=== PATIENT | female | born 1985 | race Caucasian/White ===

== ENCOUNTER 2020-11-07 20:11 | Emergency (ER) | payer OTHER ==
[~2020-11-07 20:11] MED LIST: HCTZ25 MG PO; PRENATAL FORMU1 EACH PO; VITAMIN D3125 MC1 PO
[2020-11-07 21:03] LABS: BASOPHIL 0.2 % (0-2); BILIRUBIN NEGATIVE (NEGATIVE); BLOOD TRACE-INTACT Ery/uL (NEGATIVE); CLARITY CLEAR (CLEAR); COLOR YELLOW (YELLOW); GLUCOSE (U) NORMAL (NORMAL); HCT 37.3 % (37.0-47.0); HGB 13.2 g/dl (12.5-16.0); LEUKOCYTES NEGATIVE Leu/uL (NEGATIVE); LYMPHOCYTE 36.9 % (15-48); MCH 30.8 pg (25.0-31.0); MCHC 35.4 g/dL (32.0-36.0); MCV 87.1 fL (78.0-100.0); MPV 8.8 fL (6.0-9.5); NEUTROPHIL 56.5 % (41-80); NITRITE NEGATIVE (NEGATIVE); NRBC 0; PLT 341 K/uL (150-400); PROTEIN NEGATIVE (NEGATIVE); RBC 4.28 M/uL (4.20-5.40); UROBILINOGEN 0.2 mg/dL (0.2-1.0); WBC 12.2 K/uL (4.0-10.5); pH 5.5 (5.0-9.0)
[2020-11-07 21:12] LABS: BACTERIA 2+
[2020-11-07 21:13] LABS: SQUAMOUS EPITHELIAL CELLS 20-50
[2020-11-07 21:24] LABS: BILIRUBIN - TOTAL 0.3 mg/dL (0.2-1.0); BUN/CREAT RATIO (CALC) 13.8 RATIO; CREATININE 0.58 mg/dL (0.51-0.95); GLOBULIN (CALCULATION) 3.9 g/dL; POTASSIUM 3.2 mmol/L (3.5-5.1); TOTAL PROTEIN 6.9 g/dL (6.4-8.2)
== END 2020-11-07 23:54 | disposition home or self-care (01) ==
LOC: FER 20:11
PROVIDERS: Emergency Medicine
DX: O99.891 Other specified diseases and conditions complicating pregnancy (principal); R51.9 Headache, unspecified; O99.281 Endocrine, nutritional and metabolic diseases complicating pregnancy, first trimester; E87.6 Hypokalemia; E87.1 Hypo-osmolality and hyponatremia; O99.331 Smoking (tobacco) complicating pregnancy, first trimester; F17.200 Nicotine dependence, unspecified, uncomplicated; Z3A.01 Less than 8 weeks gestation of pregnancy
CPT/HCPCS: 36415; 80053; 81001; 84702; 85025; 99284

== ENCOUNTER 2021-05-31 15:31 | Inpatient (IN) | payer OTHER ==
[2021-05-31 16:08] LABS: HCT 33.2 % (37.0-47.0); HGB 11.5 g/dl (12.5-16.0); MCH 29.3 pg (25.0-31.0); MCHC 34.6 g/dL (32.0-36.0); MCV 84.7 fL (78.0-100.0); MPV 10.6 fL (6.0-9.5); RBC 3.92 M/uL (4.20-5.40); RDW 15.6 % (11.5-14.0); WBC 8.9 K/uL (4.0-10.5)
[2021-05-31 16:20] LABS: ALBUMIN 2.6 g/dL (3.4-5.0); BILIRUBIN - TOTAL 0.4 mg/dL (0.2-1.0); BUN/CREAT RATIO (CALC) 9.3 RATIO; CREATININE 0.54 mg/dL (0.51-0.95); GLOBULIN (CALCULATION) 4.4 g/dL; POTASSIUM 3.7 mmol/L (3.5-5.1); URIC ACID 4.3 mg/dL (2.6-6.2)
[2021-05-31 16:45] LABS: BILIRUBIN NEGATIVE (NEGATIVE); BLOOD TRACE-INTACT Ery/uL (NEGATIVE); CLARITY CLEAR (CLEAR); COLOR YELLOW (YELLOW); GLUCOSE (U) NORMAL (NORMAL); LEUKOCYTES NEGATIVE Leu/uL (NEGATIVE); NITRITE NEGATIVE (NEGATIVE); PROTEIN NEGATIVE (NEGATIVE); UROBILINOGEN 0.2 mg/dL (0.2-1.0)
[2021-05-31 16:54] LABS: BACTERIA TRACE
[2021-05-31 17:00] LABS: AMPHETAMINES NEGATIVE (NEGATIVE); BARBITURATES NEGATIVE (NEGATIVE); ECSTASY (MDMA) NEGATIVE (NEGATIVE); MARIJUANA (THC) NEGATIVE (NEGATIVE); METHADONE NEGATIVE (NEGATIVE); OPIATES NEGATIVE (NEGATIVE); OXYCODONE NEGATIVE (NEGATIVE)
[2021-05-31 17:26] LABS: URINE CREATININE 38.82 mg/dL (29.00-226.00); URINE TOTAL PROTEIN-RANDOM <6.0 mg/dL (<11.9)
[2021-06-02 06:36] LABS: HCT 27.4 % (37.0-47.0); HGB 9.4 g/dl (12.5-16.0); MCH 29.3 pg (25.0-31.0); MCHC 34.3 g/dL (32.0-36.0); MCV 85.4 fL (78.0-100.0); RBC 3.21 M/uL (4.20-5.40); RDW 15.5 % (11.5-14.0); WBC 11.9 K/uL (4.0-10.5)
[2021-06-02] MEDS ORDERED: FEOSOL325 MG PO (17:26)
[2021-06-02] MEDS ORDERED: PRENATAL FORMU1 EACH PO (17:26)
[2021-06-02] MEDS ORDERED: COLACE100 MG PO (17:26)
[2021-06-02] MEDS ORDERED: IBUPROFEN800 M1 PO (17:26)
== END 2021-06-03 14:28 | disposition home or self-care (01) | DRG 806 ==
LOC: FOD 15:31 → FOB 15:32 → FOD 18:40 → FOB 18:43
PROVIDERS: ADMIT Obstetrics & Gynecology
PROC: 10E0XZZ Delivery of Products of Conception, External Approach (ICD-10-PCS; principal; 2021-06-01)
DX: O24.425 Gestational diabetes mellitus in childbirth, controlled by oral hypoglycemic drugs (principal); O10.92 Unspecified pre-existing hypertension complicating childbirth; Z37.0 Single live birth; D62 Acute posthemorrhagic anemia; Z3A.38 38 weeks gestation of pregnancy; Z20.822 Contact with and (suspected) exposure to COVID-19; O32.6XX0 Maternal care for compound presentation, not applicable or unspecified; O99.214 Obesity complicating childbirth; O99.02 Anemia complicating childbirth; D57.3 Sickle-cell trait; O99.334 Smoking (tobacco) complicating childbirth; F17.200 Nicotine dependence, unspecified, uncomplicated
CPT/HCPCS: 36415; 80053; 80305; 81001; 82570; 82947; 82962; 83615; 84156; 84550; 86850; 86900; 86901; J1650; J2916; J7120; J7121; U0002